=== PATIENT | male | born 1945 | race Caucasian/White ===

== ENCOUNTER → 2019-10-28 | Outpatient (CLI) | payer MEDICARE, BC | LOC: AMSURD 14:48 | DX: I48.0 Paroxysmal atrial fibrillation (principal) ==

== ENCOUNTER → 2019-12-19 | Outpatient (CLI) | payer MEDICARE, BC | LOC: CARDLAB 12-12 09:58 → CARDREHAB 08:40 → CARDLAB 15:59 | DX: R06.00 Dyspnea, unspecified (principal) | CPT/HCPCS: A9500 ==